=== PATIENT | female | born 2000 | race African-American/Black ===

== ENCOUNTER 2021-06-08 15:28 | Emergency (ER) | payer OTHER ==
[~2021-06-08] VITALS: Ht 162.6 cm; Wt 59.0 kg
[2021-06-08 15:36] VITALS: BP 116/59
[2021-06-08 17:02] LABS: CLARITY URINE TURBID (CLEAR); COLOR URINE YELLOW (YELLOW); KETONES URINE 1+ (NEGATIVE); LEUKOCYTE ESTERASE URINE 3+ (NEGATIVE); NITRITE URINE NEGATIVE (NEGATIVE); OCCULT BLOOD URINE 3+ (NEGATIVE); PH URINE 5.5 (4.5-8.0); PROTEIN URINE 3+ (NEGATIVE); SPECIFIC GRAVITY URINE 1.025 (1.005-1.030)
[2021-06-08] MEDS ORDERED: NITR-87 MT (17:47)
== END 2021-06-08 17:58 | disposition home or self-care (01) ==
LOC: ER 15:53
DX: N30.00 Acute cystitis without hematuria (principal)
CPT/HCPCS: 81003; 81025; 87077; 87186; 99283